=== PATIENT | female | born 1955 | race Caucasian/White ===

== ENCOUNTER 2018-07-03 08:25 | Inpatient (IN) | payer OTHER ==
[2018-07-03] MEDS: SOD CHLORIDE 0.9% 1,000 ML IV (08:00)
[2018-07-03] MEDS: ACETAMINOPHEN 500 MG TAB PO (08:00)
[2018-07-03] MEDS ORDERED: LIDOCAINE 2% (SDV) 5 ML INJ (09:44)
[2018-07-03] MEDS ORDERED: PROPOFOL 40 ML (09:44)
[2018-07-03] MEDS ORDERED: MIDAZOLAM 1 MG/ML 2 ML INJ (09:44)
[2018-07-03] MEDS ORDERED: FENTAnyl 50 MCG/ML VIAL ×2 (09:44→12:00)
[2018-07-03] MEDS: VANCOMYCIN HCL 2 GM in SOD CHLORIDE 0.9% 500 ML IVPB (10:23)
[2018-07-03] MEDS ORDERED: PROPOFOL 100 ML (10:51)
[2018-07-03] MEDS ORDERED: ONDANSETRON 4 MG INJ IV ×3 (12:30→16:00)
[2018-07-03] MEDS ORDERED: GLYCOPYRROLATE 0.4 MG INJ (12:34)
[2018-07-03] MEDS ORDERED: NEOSTIGMINE 3 MG/3 ML SYRINGE (12:34)
[2018-07-03] MEDS ORDERED: HYDROmorphONE 1 MG/5 ML IV SYRINGE IV ×2 (12:44→13:00)
[2018-07-03] MEDS: HYDROmorphONE 1 MG/5 ML IV SYRINGE IV ×2 (12:45→13:09)
[2018-07-03] MEDS ORDERED: DIPHENHYDRAMINE 50 MG INJ (12:51)
[2018-07-03] MEDS ORDERED: ALBUTEROL 0.083% (NEB) 2.5 MG/3 ML AMP HHN (13:00)
[2018-07-03] MEDS ORDERED: hydrALAzine 20 MG INJ IV (13:00)
[2018-07-03] MEDS ORDERED: MEPERIDINE 25 MG INJ IV (13:00)
[2018-07-03] MEDS ORDERED: OXYCODONE/ACETAMINOPHEN (5/325) TAB PO ×2 (13:00)
[2018-07-03] MEDS ORDERED: EPHEDrine SULFATE 50 MG/5 ML SYG IV (13:00)
[2018-07-03] MEDS ORDERED: FENTAnyl 50 MCG/ML VIAL IV ×3 (13:00)
[2018-07-03] MEDS ORDERED: METOCLOPRAMIDE 10 MG INJ IV ×2 (13:00→16:00)
[2018-07-03] MEDS ORDERED: LABETALOL HCL 20MG INJ IV (13:00)
[2018-07-03] MEDS ORDERED: KETOROLAC 30 MG INJ IV (13:00)
[2018-07-03] MEDS: DIPHENHYDRAMINE 50 MG INJ IV (13:12)
[2018-07-03] MEDS: D5W-0.45 NACL + KCL 20 MEQ 1,000 ML IV ×2 (14:15→20:52)
[2018-07-03] MEDS: ACETAMINOPHEN 1000MG/100ML IV 100 ML IVPB (14:30)
[2018-07-03] MEDS ORDERED: HYDROmorphONE 0.5 MG/0.5 ML SYG IV (16:00)
[2018-07-03] MEDS ORDERED: ACETAMINOPHEN 325 MG TAB PO (16:00)
[2018-07-03] MEDS ORDERED: ALBUTEROL/IPRATROPIUM (NEB) 3 ML AMP HHN (16:00)
[2018-07-03] MEDS ORDERED: BISACODYL 10 MG SUPP PR ×2 (17:00→21:00)
[2018-07-03] MEDS: FLUTICASONE 0.05% 16 GM NAS SPRAY NASAL (17:00)
[2018-07-03] MEDS ORDERED: DIPHENHYDRAMINE 1%/ZINC 28.3 GM CR TOP (17:00)
[2018-07-03] MEDS ORDERED: MAGNESIUM HYDROXIDE 30ML CUP PO ×2 (17:00→21:00)
[2018-07-03] MEDS: PANTOPRAZOLE 40 MG INJ IV (17:50)
[2018-07-03] MEDS: GEMFIBROZIL 600 MG TAB PO (20:12)
[2018-07-03] MEDS: KETOROLAC 30 MG INJ IV (20:51)
[2018-07-04] MEDS: D5W-0.45 NACL + KCL 20 MEQ 1,000 ML IV (04:23)
[2018-07-04] MEDS: KETOROLAC 30 MG INJ IV ×3 (04:30→18:41)
[2018-07-04 05:26] LABS: ADD MAN DIFF? NO
[2018-07-04 05:34] LABS: WHITE BLOOD COUNT 5.4 10^3/ul (4.8-10.8)
[2018-07-04 05:34] LABS: BASOPHIL # 0.1 10^3/ul (0.0-0.1); BASOPHILS % 1.1 % (0.0-2.0); EOSINOPHILS # 0.2 10^3/ul (0.0-0.5); EOSINOPHILS % 3.2 % (0.0-7.0); HEMATOCRIT 34.1 % (37.0-47.0); HEMOGLOBIN 10.9 g/dl (12.0-16.0); LYMPHOCYTES # 2.6 10^3/ul (0.8-2.9); LYMPHOCYTES % 47.5 % (15.0-51.0); MEAN CORPUSCULAR HEMOGLOBIN 27.5 pg (29.0-33.0); MEAN CORPUSCULAR VOLUME 86.1 fl (82.0-101.0); MEAN PLATELET VOLUME 10.9 fl (7.4-10.4); MONOCYTE # 0.3 10^3/ul (0.3-0.9); MONOCYTES % 6.3 % (0.0-11.0); NEUTROPHIL # 2.2 10^3/ul (1.6-7.5); NEUTROPHILS % 41.7 % (39.0-77.0); PLATELET COUNT 257 10^3/UL (140-415); RED BLOOD COUNT 3.96 10^6/ul (4.20-5.40); RED CELL DISTRIBUTION WIDTH 12.9 % (11.5-14.5)
[2018-07-04] MEDS: PANTOPRAZOLE 40 MG INJ IV (05:46)
[2018-07-04 06:09] LABS: ANION GAP 1 (5-13); BLOOD UREA NITROGEN 12 mg/dl (7-20); CALCIUM 9.2 mg/dl (8.4-10.2); CARBON DIOXIDE 26 mmol/L (21-31); CHLORIDE 112 mmol/L (97-110); Estimated GFR > 60 mL/min (>60); GLUCOSE 132 mg/dl (70-220); MAGNESIUM 1.8 mg/dl (1.7-2.5); PHOSPHORUS 4.6 mg/dl (2.5-4.9); POTASSIUM 4.3 mmol/L (3.5-5.1); SODIUM 139 mmol/L (135-144)
[2018-07-04] MEDS: FLUTICASONE 0.05% 16 GM NAS SPRAY NASAL (08:21)
[2018-07-04] MEDS: GEMFIBROZIL 600 MG TAB PO ×2 (08:21→21:02)
[2018-07-04] MEDS: ALBUTEROL 0.083% (NEB) 2.5 MG/3 ML AMP HHN ×3 (12:07→20:23)
[2018-07-04] MEDS: MINERAL OIL 30ML CUP PO ×2 (16:26→21:02)
[2018-07-04] MEDS: GUAIFENESIN 20 MG/ML 5ML CUP PO (21:02)
[2018-07-05] MEDS: KETOROLAC 30 MG INJ IV ×4 (00:08→17:56)
[2018-07-05] MEDS: ALBUTEROL 0.083% (NEB) 2.5 MG/3 ML AMP HHN ×6 (01:00→20:02)
[2018-07-05] MEDS: PANTOPRAZOLE 40 MG INJ IV (05:42)
[2018-07-05] MEDS: GUAIFENESIN 20 MG/ML 5ML CUP PO ×3 (08:46→21:09)
[2018-07-05] MEDS: DOCUSATE SODIUM 100 MG CAP PO (08:47)
[2018-07-05] MEDS: FLUTICASONE 0.05% 16 GM NAS SPRAY NASAL (08:47)
[2018-07-05] MEDS: MINERAL OIL 30ML CUP PO ×2 (08:47→21:00)
[2018-07-05] MEDS: GEMFIBROZIL 600 MG TAB PO ×2 (08:47→21:03)
[2018-07-05] MEDS ORDERED: LUBIPROSTONE 24 MCG CAP PO (15:30)
[2018-07-05] MEDS: LUBIPROSTONE 8 MCG CAPSULE PO (21:00)
[2018-07-05] MEDS: PHENOL 1.4% SOLN 180 ML BTL MT (21:09)
[2018-07-06] MEDS: ALBUTEROL 0.083% (NEB) 2.5 MG/3 ML AMP HHN ×4 (01:00→13:15)
[2018-07-06] MEDS: KETOROLAC 30 MG INJ IV ×3 (05:15→12:39)
[2018-07-06] MEDS: PANTOPRAZOLE 40 MG INJ IV (05:15)
[2018-07-06 05:38] LABS: ADD MAN DIFF? NO
[2018-07-06 05:47] LABS: BASOPHIL # 0.1 10^3/ul (0.0-0.1); EOSINOPHILS # 0.2 10^3/ul (0.0-0.5); EOSINOPHILS % 3.5 % (0.0-7.0); HEMATOCRIT 34.7 % (37.0-47.0); HEMOGLOBIN 11.2 g/dl (12.0-16.0); LYMPHOCYTES # 2.5 10^3/ul (0.8-2.9); LYMPHOCYTES % 47.6 % (15.0-51.0); MEAN CORPUSCULAR HEMOGLOBIN 27.7 pg (29.0-33.0); MEAN CORPUSCULAR HGB CONC 32.3 g/dl (32.0-37.0); MEAN CORPUSCULAR VOLUME 85.9 fl (82.0-101.0); MEAN PLATELET VOLUME 10.6 fl (7.4-10.4); MONOCYTE # 0.4 10^3/ul (0.3-0.9); MONOCYTES % 7.5 % (0.0-11.0); NEUTROPHIL # 2.1 10^3/ul (1.6-7.5); NEUTROPHILS % 40.2 % (39.0-77.0); PLATELET COUNT 280 10^3/UL (140-415); RED BLOOD COUNT 4.04 10^6/ul (4.20-5.40); RED CELL DISTRIBUTION WIDTH 12.9 % (11.5-14.5)
[2018-07-06 05:47] LABS: WHITE BLOOD COUNT 5.2 10^3/ul (4.8-10.8)
[2018-07-06 06:19] LABS: ANION GAP 7 (5-13); BLOOD UREA NITROGEN 15 mg/dl (7-20); CALCIUM 9.8 mg/dl (8.4-10.2); CARBON DIOXIDE 26 mmol/L (21-31); CHLORIDE 108 mmol/L (97-110); CREATININE 0.57 mg/dl (0.44-1.00); Estimated GFR > 60 mL/min (>60); GLUCOSE 128 mg/dl (70-220); SODIUM 141 mmol/L (135-144)
[2018-07-06 06:26] LABS: POTASSIUM 4.4 mmol/L (3.5-5.1)
[2018-07-06] MEDS: LUBIPROSTONE 8 MCG CAPSULE PO (08:17)
[2018-07-06] MEDS: MINERAL OIL 30ML CUP PO (08:17)
[2018-07-06] MEDS: GEMFIBROZIL 600 MG TAB PO (08:18)
[2018-07-06] MEDS: FLUTICASONE 0.05% 16 GM NAS SPRAY NASAL (08:18)
[2018-07-06] MEDS: GUAIFENESIN 20 MG/ML 5ML CUP PO (10:18)
[2018-07-06] MEDS ORDERED: LUBIPROSTONE 24 MCG CAP PO (21:00)
== END 2018-07-06 17:29 | disposition home or self-care (01) | DRG 581 ==
LOC: REC 08:25 → PP2 13:48
PROC: 0HBU0ZZ Excision of Left Breast, Open Approach (ICD-10-PCS; principal; 2018-07-03 10:30)
PROC: 07B60ZX Excision of Left Axillary Lymphatic, Open Approach, Diagnostic (ICD-10-PCS; 2018-07-03 10:30)
DX: C50.912 Malignant neoplasm of unspecified site of left female breast (principal); Z85.3 Personal history of malignant neoplasm of breast; I10 Essential (primary) hypertension; J44.9 Chronic obstructive pulmonary disease, unspecified; E78.00 Pure hypercholesterolemia, unspecified; K21.9 Gastro-esophageal reflux disease without esophagitis; E55.9 Vitamin D deficiency, unspecified; G47.30 Sleep apnea, unspecified; R05 Cough; K59.00 Constipation, unspecified
CPT/HCPCS: 71046; 80048; 83735; 84100; 85025; 88307; 94640; 94660; 94664